=== PATIENT | female | born 1940 | race Caucasian/White ===

== ENCOUNTER → 2018-10-08 16:24 | Outpatient (CLI) | payer MEDICARE, MEDICAID, SELFPAY ==
[2018-10-08 16:40] LABS: Microscopic, Urine URINE MICROSCOPIC (MICROSCOPIC)
[2018-10-08 16:54] LABS: Appearance,Urine CLEAR (Clear); Bilirubin,Urine Negative (Negative); Blood, Urine Negative (Negative); Color,Urine YELLOW (Yellow); Glucose,Urine (UA) Negative (Negative); Ketones,Urine Negative (Negative); Leukocyte Esterase,Urine Negative (Negative); Nitrate,Urine Negative (Negative); Protein,Urine 1+ (Negative); Specific Gravity, Urine 1.015 (1.005-1.030); Urobilinogen,Urine 0.2 EU/dl (0.2)
[2018-10-08 17:11] LABS: Squamous Epithelial Cell,Urine Occasional #/hpf (0-5)
[2018-10-08 17:12] LABS: Bacteria,Urine Trace /lpf
== END ==
PROVIDERS: Visit Provider Nurse Practitioner Family
DX: R50.9 Fever, unspecified (principal); R53.81 Other malaise
CPT/HCPCS: 81001; 87086

== ENCOUNTER 2020-02-09 23:09 | Inpatient (IN) | payer MEDICARE, MEDICAID, SELFPAY ==
[2020-02-09 23:08] VITALS: BP 210/95; PULSE 80; RESP 14; TEMP 37; O2SAT 94; BMI 29.8; BMI 319.9
--- NOTE | 2020-02-09 23:09 | CT_ITS ---
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 All CT scans at the facility use one or more dose reduction, viz: automated exposure control, ma/kV adjustment per patient size (including targeted exams where dose is matched to indication, i.e. head), or iterative reconstruction technique. FINDINGS: The patient was unable to lie flat supine and had to be scanned on her side. There is generalized atrophy with hypoattenuation of the periventricular white matter consistent with microangiopathic changes. No midline shift or mass effect. No acute intracranial hemorrhage or hydrocephalus. No acute calvarial findings. IMPRESSION: No acute intracranial finding Dictated by: Joesph Branch MD 02/10/2020 05:37 Joesph Branch MD in [place] 02/10/2020 05:37
--- NOTE | 2020-02-09 23:10 | PC.NURSE ---
2305 FSBS obtained by Jaime Clark
--- NOTE | 2020-02-09 23:10 | PC.NURSE ---
2307 pt sent straight up to CT scanner via EMS , [facility]. Stroke Alert protocol
--- NOTE | 2020-02-09 23:12 | XR_ITS ---
PROCEDURE: XR CHEST PORTABLE CLINICAL HISTORY: weakness COMPARISON: CR CXR CHEST(2 VIEWS-NOT PORTABLE) from 11/23/2014 CR CXR1 CHEST-PORTABLE from 12/08/2016 CT CTAC CTA-CHEST from 12/08/2016 CR CXR1 CHEST-PORTABLE from 04/25/2017 FINDINGS: The cardiomediastinal silhouette and pulmonary vascularity are within normal limits. There is chronic consolidation in the right lower lobe with pleural thickening/effusion. There is also increased density in the left lung base which may be due to atelectasis or infiltrate. Upper lobes are clear. Postsurgical changes lumbar spine. No acute bony abnormalities. IMPRESSION: Chronic consolidation with effusion or pleural thickening in the right lower lobe with atelectasis or infiltrate in the left lower lobe Dictated by: Joesph Branch MD 02/10/2020 05:22 Joesph Branch MD in [facility] 02/10/2020 05:22
[2020-02-09 23:20] LABS: Basophils % 0.2 % (0.1-2.0); Eosinophils # 0.2 K/mm3 (0.0-0.4); Hematocrit 42.5 % (37.0-47.0); Hemoglobin 14.3 g/dL (12.2-16.2); Lymphocytes # 0.9 K/mm3 (0.7-4.5); Lymphocytes % 9.8 % (10-50); Mean Corpuscular HGB Conc 33.7 g/dL (31.8-35.4); Mean Corpuscular Hemoglobin 30.2 pg (27.0-31.2); Mean Corpuscular Volume 89.5 fl (81-99); Mean Platelet Volume 7.8 fl (7.4-10.4); Monocytes # 0.5 K/mm3 (0.1-1.0); Monocytes % 5.2 % (1.7-9.3); Neutrophils # 7.7 K/mm3 (1.8-7.8); Neutrophils % 82.8 % (37.0-80.0); Platelet Count 205 K/mm3 (142-424); Red Blood Count 4.75 M/mm3 (4.20-5.40); White Blood Count 9.3 K/mm3 (4.8-10.8)
[2020-02-09 23:23] LABS: Chloride 95 mmol/L (98-107)
[2020-02-09 23:24] LABS: Sodium 140 mmol/L (136-145)
[2020-02-09 23:26] LABS: Alanine Aminotransferase 25 U/L (12-78); Alkaline Phosphatase 139 U/L (38-126); Aspartate Amino Transferase 33 U/L (14-36); Bilirubin,Total 0.4 mg/dl (0.2-1.3); Blood Urea Nitrogen 18 mg/dl (7-17); Creatinine Clearance Estimated 61 mL/min (50-200); Estimated Glomerular Filt Rate 61 ml/min (>60); GFR (African American) 73 ML/MIN (>60)
[2020-02-09 23:27] LABS: Calcium 9.2 mg/dl (8.4-10.2); Carbon Dioxide 37 mmol/L (22.0-30.0); Glucose 169 mg/dl (74-100)
[2020-02-09 23:28] LABS: Ethyl Alcohol < 10 mg/dl (0-10)
--- NOTE | 2020-02-09 23:29 | HMH.EDGENADL ---
ED Disposition Clinical Impression: Expressive aphasia, Uncontrolled hypertension Disposition: Admitted as Observation Condition on Discharge: Fair - Critical Care Critical Care Time: Yes Attestation: On 02/09/20, the high probability of a clinically significant, sudden or life threatening deterioration of the following system(s) required my full and direct attention, intervention and personal management. The time I documented below is in addition to time spent performing reported procedures but includes the following listed in this critical care notation. Total Critical Care Time: 30 Vital system(s) involved:: Circulatory Failure, Central Nervous System My critical care processes included: Assessment & monitoring of V/S, Initial and Re-exams, Data Review/Interpretation, Coordinating Care, Medication Orders and management, Documentation Medical Decision Making - Medical Records Medical records reviewed: Yes: I reviewed the patient's medical records. MR Comment: Admitted here on 12/08/2016 for what sounds like the same symptoms. stroke team consulted and transfer to was recommended, but patient refused. Diagnosed with TIA. - Eric Inquiry Pt receiving controlled substance: No Vital Signs: 02/09/20 23:08 02/10/20 00:07 02/10/20 00:24 Temperature 98.6 F Temperature Source Oral Pulse Rate Pulse Rate [Right Radial] 80 74 Respiratory Rate 14 15 Blood Pressure Blood Pressure [Right Arm] 210/95 H 156/82 H Blood Pressure Mean [Right Arm] 133 106 Blood Pressure Source Blood Pressure Source [Right Arm] Automatic Cuff Automatic Cuff Blood Pressure Position Blood Pressure Position [Right Arm] Supine Sitting 02 Sat by Pulse Oximetry 94 L 96 Oxygen Delivery Method Nasal Cannula Room Air Nasal Cannula Oxygen Flow Rate (LPM) 2 02/10/20 00:30 02/10/20 01:12 Temperature 98.6 F Temperature Source Oral Pulse Rate 82 Pulse Rate [Right Radial] 73 Respiratory Rate 18 19 Blood Pressure 185/81 H Blood Pressure [Right Arm] 166/91 H Blood Pressure Mean [Right Arm] 116 Blood Pressure Source Automatic Cuff Blood Pressure Source [Right Arm] Automatic Cuff Blood Pressure Position Supine Blood Pressure Position [Right Arm] Supine 02 Sat by Pulse Oximetry 97 Oxygen Delivery Method Nasal Cannula Nasal Cannula Oxygen Flow Rate (LPM) 2 2 - Lab Data Lab results reviewed: Yes: I reviewed the patient's lab results. Lab Results 02/09/20 00:00: SARS-CoV-2 IgG Ab (Rapid) Negative, SARS-CoV-2 IgM Ab (Rapid) Negative 02/09/20 23:10: WBC 9.3, RBC 4.75, Hgb 14.3, Hct 42.5, MCV 89.5, MCH 30.2, MCHC 33.7, RDW 13.0, Plt Count 205, MPV 7.8, Neut % (Auto) 82.8 H, Lymph % (Auto) 9.8 L, [place] % (Auto) 5.2, Eos % (Auto) 2.0, Baso % (Auto) 0.2, Neut # (Auto) 7.7, Lymph # (Auto) 0.9, [place] # (Auto) 0.5, Eos # (Auto) 0.2, Baso # (Auto) 0.0 02/09/20 23:10: Sodium 140, Potassium 4.0, Chloride 95 L, Carbon Dioxide 37 H, Anion Gap 12.0, BUN 18 H, Creatinine 0.90, Estimated Creat Clear 61, Estimated GFR 61, Est GFR ( Amer) 73, Glucose 169 H, Calcium 9.2, Total Bilirubin 0.4, AST 33, ALT 25, Alkaline Phosphatase 139 H, Troponin I < 0.01, Total Protein 8.0, Albumin 4.0, Globulin 4.0 H, Albumin/Globulin Ratio 1.0 L 02/09/20 23:10: Plasma/Serum Alcohol < 10 02/09/20 23:25: PT 10.4, INR 1.01 02/09/20 23:30: Urine Color Yellow, Urine Appearance Clear, Urine pH 8.0, Ur Specific [place] 1.020, Urine Protein 1+, Urine Glucose (UA) Negative, Urine Ketones Negative, Urine Blood Trace-i, Urine Nitrate Negative, Urine Bilirubin Negative, Urine Urobilinogen 0.2, Ur Leukocyte Esterase Negative, Urine Bacteria Trace 02/09/20 23:30: Urine Opiates Screen Negative, Urine Methadone Screen Negative, Ur Barbituates Screen Negative, Ur Phencyclidine Scrn Negative, Ur Amphetamines Screen Negative, U Benzodiazepines Scrn Positive H, Urine Cocaine Screen Negative, U Marijuana (THC) Screen Negative Result diagrams: 02/09/20 23:10 02/09/20 23:
--- NOTE | 2020-02-09 23:32 | PC.NURSE ---
calling [place] stroke team at this time.
[2020-02-09 23:34] LABS: Microscopic, Urine URINE MICROSCOPIC (MICROSCOPIC)
--- NOTE | 2020-02-09 23:35 | PC.NURSE ---
at bedside at 2317 assessing pt
--- NOTE | 2020-02-09 23:38 | PC.NURSE ---
on phone with dr. starkey at this time.
[2020-02-09 23:40] LABS: Appearance,Urine CLEAR (Clear); Bilirubin,Urine Negative (Negative); Blood, Urine TRACE-I (Negative); Color,Urine YELLOW (Yellow); Glucose,Urine (UA) Negative (Negative); Ketones,Urine Negative (Negative); Leukocyte Esterase,Urine Negative (Negative); Nitrate,Urine Negative (Negative); Protein,Urine 1+ (Negative); Urobilinogen,Urine 0.2 EU/dl (0.2)
--- NOTE | 2020-02-09 23:40 | PC.NURSE ---
last seen normal per ems was at 1830 reji 02/09/2020
[2020-02-09 23:42] LABS: INR 1.01 (0.9-1.1); Prothrombin Time 10.4 seconds (9.4-11.8)
--- NOTE | 2020-02-09 23:45 | PC.NURSE ---
[place] advised to monitor pt overnight
[2020-02-09 23:46] LABS: Troponin I < 0.01 ng/ml (0.00-0.034)
--- NOTE | 2020-02-09 23:48 | ECG_ITS ---
APPROVED REPORT Exam: Resting ECG HR:74 bpm ECG Measurements Heart Rate 74 AXES OH 178 P 76 QRSd 86 QRS -56 QT 402 T 70 QTc 446 <Conclusion> Normal sinus rhythm Left axis deviation Septal infarct, age undetermined Abnormal ECG Electronically signed by : John Long, 02/12/2020 15:01:54
[2020-02-09 23:53] LABS: Benzodiazepines Screen,Urine Positive ng/ml (<200)
[2020-02-09 23:54] LABS: Amphetamine/Metha Screen,Urine Negative ng/ml (<1000); Barbiturates Screen,Urine Negative ng/ml (<200)
--- NOTE | 2020-02-09 23:54 | PC.NURSE ---
on phone with dr. knight which is web content executive for dr. russell
[2020-02-09 23:55] LABS: Cannabinoid Screen,Urine Negative ng/ml (<50); Methadone Screen,Urine Negative ng/ml (<300)
[2020-02-09 23:56] LABS: Cocaine Screen,Urine Negative ng/ml (<300)
[2020-02-09 23:57] LABS: Opiate Screen,Urine Negative ng/ml (<300)
[2020-02-09 23:58] LABS: Bacteria,Urine Trace /lpf; Phencyclidine Screen,Urine Negative ng/ml (<25)
[2020-02-10] VITALS (13 sets, daily range): BP systolic 144–186; BP diastolic 72–100; PULSE 72–88; RESP 15–22; TEMP 36.7–38.2; O2SAT 93–98; BMI 34.4; BMI 34.9
[2020-02-10 00:35] LABS: Coronavirus 19 IgG Antibody Negative (Negative); Coronavirus 19 IgM Antibody Negative (Negative)
--- NOTE | 2020-02-10 00:57 | PC.NURSE ---
0053- Report called to [facility]
--- NOTE | 2020-02-10 01:16 | PC.NURSE ---
PT ARRIVED TO THE FLOOR VIA STRETCHER W/STAFF FROM ED AT 0116
[2020-02-10 05:28] LABS: POC Glucose,Bedside 147 (70-110)
--- NOTE | 2020-02-10 05:52 | PC.NURSE ---
shift summary, NIH stroke assessments done every hour, no changes from admission to floor, pt continues to be aphasic, obando catheter in place, draining clear, yellow urine, son remains at bedside, systolic BP has been from 158-171, with diastolic from 73-100, pt denies chest pain, headache, SOA, n/v, diaphoresis
--- NOTE | 2020-02-10 07:27 | HMH.PHAVTE ---
[facility] Pharmacy VTE Monitoring - Patient Demographics Admission date: 02/09/20 Report Date: 02/10/20 Time: 07:27 Allergies/Adverse Reactions: Patient Allergies Penicillins [PENICILLINS] Allergy (Intermediate, Verified 02/10/20 01:54) prednisone [PREDNISONE] Allergy (Mild, Verified 02/10/20 01:54) Gastrointestinal Upset Sulfa (Sulfonamide Antibiotics) [SULFA (SULFONAMIDE ANTIBIOTICS)] Allergy (Unknown, Verified 02/10/20 01:54) NARCOTICS Allergy (Intermediate, Uncoded 02/10/20 01:54) Drowsy Height: 1.57 m Weight: 85.502 kg Patient Problems: Current Active Problems Expressive aphasia (Acute) Uncontrolled hypertension (Acute) - VTE Risk Labs: VTE Related Lab Results Hgb 14.3 g/dL (12.2-16.2) 02/09/20 23:10 Hct 42.5 % (37.0-47.0) 02/09/20 23:10 Plt Count 205 K/mm3 (142-424) 02/09/20 23:10 PT 10.4 seconds (9.4-11.8) 02/09/20 23:25 INR 1.01 (0.9-1.1) 02/09/20 23:25 BUN 18 mg/dl (7-17) H 02/09/20 23:10 Creatinine 0.90 mg/dl (0.52-1.04) 02/09/20 23:10 Estimated Creat Clear 61 mL/min (50-200) 02/09/20 23:10 - Prophylaxis VTE Prophylaxis Ordered?: Yes Types of VTE Prophylaxis: TEDS Knee High Location of Applied Device: Bilateral Lower Extremeties
--- NOTE | 2020-02-10 07:28 | HMH.HP ---
*Admission Date: 02/09/20 *Chief complaint: Hypertension and word finding difficulty *History of present illness: Ms. Gonzalez is a 79-year-old female brought in by EMS last night after being found by her son to developed difficulty with word finding and having elevated blood pressure. Per report from her son, she has had previous episodes (2 per her recollection) they were associated with a UTI and elevated blood pressure. Had previously been on aspirin and Plavix until developing hemoptysis a year ago and is been off antiplatelet/blood thinner therapy since then. On arrival to the ER, she was found to have severe hypertension. Treated initially with labetalol with adequate decrease in blood pressure. Stroke team at was consulted and recommended starting dual antiplatelet therapy and admitting for observation. Medicine consulted for admission and blood pressure management. On assessment this morning, patient answers yes/no questions appropriately but when asked more complex questions, her answers are garbled and make no sense. When asked to place her finger to her nose she consistently put her finger in her mouth. Pleasant on interview. Blood pressure better controlled overnight with systolics 160-180. Son at bedside this morning. Updated on plan. Of note, she has developed fever overnight with T-max 100.8. [facility] History I have reviewed the patient's past medical history: Yes (From son and charts) Medical History: Reports:: Hyperlipidemia, Hypertension Denies:: Cancer, Diabetes Mellitus Type 1, Diabetes Mellitus Type 2, Internal Pacemaker, MRSA *Have you ever received a pneumonia vaccine?: No *Have you received a flu vaccine this season?: No Other Surgeries: Yes: Cholecystectomy. No: Pacemaker Amputation: No Fractures: Yes (Back) - *Social History Last grade of school completed: 7th or 8th Smoking Status: Former smoker Tobacco Type: cigarettes # Packs/Day (cigarettes): 1 Smoking End Date: 2013 Alcohol Intake: never *Occupational Status:: unemployed Housing: house Household Members: children *Travel in the last 8 weeks: None Family Hx:: Unable to obtain Review of Systems - Review of Systems Review of systems:: pertinent systems reviewed and negative unless documented below (14 point review of systems performed, pertinent positives and negatives as per HPI) Meds Home Medications Medication Instructions Recorded Confirmed Type Fluticasone/Vilanterol [Breo 1 inh IH HS 02/09/20 02/10/20 History Ellipta 200-25 Mcg INH] Losartan/Hydrochlorothiazide 1 each PO DAILY 02/09/20 02/10/20 History [Losartan-Hctz 50-12.5 mg Tab] Sitagliptin Phosphate [Januvia 100 mg PO DAILY 02/09/20 02/10/20 History 100mg tablet] Chlordiazepoxide/Clidinium Br 1 each PO DAILY 02/10/20 02/10/20 History [Librax Capsule] Donepezil HCl [Aricept 5mg 5 mg PO HS 02/10/20 02/10/20 History Tablet] Ipratropium/Albuterol Sulfate 3 ml IH BID 02/10/20 02/10/20 History [Duoneb 3mL neb] Metoprolol Tartrate [Lopressor 100 mg PO BID 02/10/20 02/10/20 History 50mg tablet] Potassium Chloride [Klor-con 20 20 meq PO BID 02/10/20 02/10/20 History mEq tablet] Simvastatin [Zocor 40mg] 40 mg PO HS 02/10/20 02/10/20 History Allergies Allergy/AdvReac Type Severity Reaction Status Date / Time Penicillins [PENICILLINS] Allergy Intermediate Verified 02/10/20 01:54 prednisone [PREDNISONE] Allergy Mild Gastrointestinal Verified 02/10/20 01:54 Upset Sulfa (Sulfonamide Allergy Unknown Verified 02/10/20 01:54 Antibiotics) [SULFA (SULFONAMIDE ANTIBIOTICS)] NARCOTICS Allergy Intermediate Drowsy Uncoded 02/10/20 01:54 Exam Vital signs and Labs for Last 24 Hours: Temp Pulse Resp BP Pulse Ox 98.7 F 85 20 186/79 H 96 02/10/20 06:21 02/10/20 06:21 02/10/20 06:21 02/10/20 06:21 02/10/20 06:21 Laboratory Results - last 24 hr 02/09/20 00:00: SARS-CoV-2 IgG Ab (Rapid) Negative, SARS-C
--- NOTE | 2020-02-10 07:30 | PC.NURSE ---
md liu said to give patients home medication of losartan-admin per order. pharmacist héctor aware he put in a one time dose order. orders to hold am medications hydroclorothiazide, and irbesartan d/t having losartan this am. son at bedside and aware of medication changes. spoke with son regarding all medications he says at home she takes k 20 meq bid and lopressor 50mg bid- dr liu aware and doesnt want to continue with those at this time.
--- NOTE | 2020-02-10 08:10 | HMH.PHAINT ---
HOME MEDICATION RECONCILIATION COMPLETED USING LIST FROM [facility]
--- NOTE | 2020-02-10 10:32 | PC.NURSE ---
patient to have mri brain/ head stat. pharmacist technician came to speak with patients son at bedside performed checklist. patient left floor on stretcher accompanied with pharmacist technician x 2 at 1015.
--- NOTE | 2020-02-10 11:01 | PC.NURSE ---
patient returned to floor from mri. machines technician said they were unsuccessful with obtaining the mri patient was unable to lie flat, was screaming no, uncooperative. md liu office called left message with his nurse explaining what happened regarding mri. son at bedside and aware as well. speech therapist currently at bedside now performing swallow evaluation.
--- NOTE | 2020-02-10 13:21 | PC.NURSE ---
md liu called back aware of patient not being able to do mri. patients son was inquiring about resuming patients mucinex, and duonebs. md liu gave orders to resume.
--- NOTE | 2020-02-10 13:22 | HMH.SLDYSPHA ---
Speech & Language Evaluation Speech/Language Dysphagia Evaluation Start: 02/10/20 13:07 Freq: ONCE Status: Active Protocol: Document 02/10/20 13:07 AMARILIS (Rec: 02/10/20 13:22 AMARILIS [id number]) Dysphagia Assess/Goals/Plan Assessment Date of Evaluation: 02/10/20 Evaluation Type Initial Certification Assessment/Problems CVA Does Patient Qualify for Service No Qualify/Failure Comment Patient shows no s/s of dysphagia Recommendations PHYSICIAN CERTIFICATION: The specified therapy services are required, authorized, and reviewed every 30 days. Diet Recommendations Mechanical Soft Liquid Type Recommendations Normal/Thin Dysphagia Swallow Precautions/Strategies Liquids from Straw Plan Pt/Guardian verbally ack understanding Yes: RN and son notified of dx/prognosis/goals G -code Required No Speech & Language HPI History Present Illness Rehab Services Assessed Speech therapy Is this evaluation r/t stroke? Yes Language Primary Language Korean General Information General Current Food Consistancy Regular,Thin Liquids Dentition Upper & Lower Dentures Oxygen Status Nasal Cannula Facial Symmetry Symmetrical Ability to Follow Directions Poor Communication Ability Severe Impairment Dysphagia:Food Presentation Evaluation Food Type Mechanical Soft,Liquid,Pudding Dysphagia Evaluation Summary Ms. Gonzalez was given the following consistencies: thins via straw, pudding, and mechanical soft. Ms. Gonzalez did not have her lower dentures available during evaluation. No s/s of dysphagia noted during evaluation, however she has difficulty following basic 1 step directions. At this time, speech therapy for dysphagia not warranted. Stroke Dysphagia Assessment PHYSICIAN CERTIFICATION: I certify the specified therapy services for Alanna Gonzalez are required, authorized, and reviewed every 30 days.
--- NOTE | 2020-02-10 14:21 | PC.NURSE ---
late entry:[address] liu that pt bp was 156/79. mri was not completed bc pt could not tolerate being flat on her back. pt also asking for her mucinex and duonebs to be reordered. per ok to order duoneb and mucinex.
[2020-02-10 15:38] LABS: POC Glucose,Bedside 152 (70-110)
--- NOTE | 2020-02-10 18:02 | PC.NURSE ---
patient son remains at bedside. patient did not want to eat dinner, attempted multiple times. patient becoming more alert as the day goes on. patient answering simple yes/no questions appropriately, knows name, does not know where she is at thinks she is at home. patient nih scale 4. safety measures are in place, patient resting. no issues at this time.
[2020-02-10 18:59] LABS: POC Glucose,Bedside 212 (70-110)
--- NOTE | 2020-02-10 19:07 | PC.NURSE ---
report given to chantel
[2020-02-11] VITALS (9 sets, daily range): BP systolic 142–150; BP diastolic 60–76; PULSE 89–118; RESP 17–27; TEMP 36.9–38.8; O2SAT 91–98; BMI 34.0
[2020-02-11 00:31] LABS: POC Glucose,Bedside 122 (70-110)
--- NOTE | 2020-02-11 01:17 | PC.NURSE ---
Pt's son requested that his mother rest and for this nurse not to perform the NIH Stroke Assessment for 0100.
--- NOTE | 2020-02-11 04:49 | PC.NURSE ---
Pt has slept most of this shift. NIH Stroke assessments continue to be performed qh, other than when son refused as stated in previous note. NIH scores have remained at 4 this shift. Pt is able to state name, and will respond to yes or no questions. Any open-ended questions, pt tries to speak but pt cannot find the words and speaks in a garbled way. Upon reassessment, lungs continue to have scattered inspiratory and expiratory rhonchi t/o. Pt has a nonproductive cough. Bilateral shins continue to be red and warm to touch. BP has decreased with 0400 vital assessment stating BP was 142/60. Pt has been turned q2h. Pt's son remains at bedside. No other acute changes at this time. Will continue to monitor.
[2020-02-11 06:49] LABS: Basophils % 0.1 % (0.1-2.0); Eosinophils % 0.2 % (0.1-12.0); Hematocrit 40.2 % (37.0-47.0); Hemoglobin 13.6 g/dL (12.2-16.2); Lymphocytes # 1.2 K/mm3 (0.7-4.5); Lymphocytes % 8.9 % (10-50); Mean Corpuscular HGB Conc 33.9 g/dL (31.8-35.4); Mean Corpuscular Hemoglobin 29.7 pg (27.0-31.2); Mean Corpuscular Volume 87.8 fl (81-99); Mean Platelet Volume 7.9 fl (7.4-10.4); Monocytes # 0.8 K/mm3 (0.1-1.0); Monocytes % 6.2 % (1.7-9.3); Neutrophils % 84.6 % (37.0-80.0); Platelet Count 193 K/mm3 (142-424); Red Blood Count 4.58 M/mm3 (4.20-5.40); Red Cell Distribution Width 12.9 % (11.5-17.5)
[2020-02-11 06:53] LABS: Chloride 88 mmol/L (98-107); Potassium 3.2 mmoL/L (3.5-5.1); Sodium 130 mmol/L (136-145)
[2020-02-11 06:56] LABS: Alanine Aminotransferase 21 U/L (12-78); Albumin Level 3.5 g/dl (3.5-5.0); Alkaline Phosphatase 112 U/L (38-126); Anion Gap 11.2 mEq/L (5-15); Aspartate Amino Transferase 32 U/L (14-36); Bilirubin,Total 0.8 mg/dl (0.2-1.3); Blood Urea Nitrogen 18 mg/dl (7-17); Calcium 8.3 mg/dl (8.4-10.2); Carbon Dioxide 34 mmol/L (22.0-30.0); Creatinine Clearance Estimated 61 mL/min (50-200); Estimated Glomerular Filt Rate 61 ml/min (>60); GFR (African American) 73 ML/MIN (>60); Globulin 3.5 g/dL (1.3-3.2); Glucose 169 mg/dl (74-100)
[2020-02-11 07:00] LABS: Magnesium 0.9 mg/dl (1.6-2.3)
--- NOTE | 2020-02-11 07:16 | PC.NURSE ---
MD James paged, environmental compliance engineer for MD Long for critical mag of 0.9. 1 gm of mag ordered
--- NOTE | 2020-02-11 09:39 | HMH.ACPN2 ---
Internal Medicine - PN: Subj *Date: 02/11/20 *Time: 09:39 Interval history: Overnight patient has been comfortable, no improvement in her expressive aphasia, continues to follow commands well, has no problems eating or swallowing. Exam Vital signs and Labs for Last 24 Hours: Temp Pulse Resp BP Pulse Ox 99.6 F 102 H 17 149/66 H 95 02/11/20 08:00 02/11/20 08:00 02/11/20 08:00 02/11/20 08:00 02/11/20 08:00 Laboratory Results - last 24 hr 02/10/20 10:54: POC Glucose 212 H 02/10/20 15:29: POC Glucose 152 H 02/10/20 21:52: POC Glucose 122 H 02/11/20 06:19: WBC 13.0 H D, RBC 4.58, Hgb 13.6, Hct 40.2, MCV 87.8, MCH 29.7, MCHC 33.9, RDW 12.9, Plt Count 193, MPV 7.9, Neut % (Auto) 84.6 H, Lymph % (Auto) 8.9 L, [place] % (Auto) 6.2, Eos % (Auto) 0.2, Baso % (Auto) 0.1, Neut # (Auto) 11.0 H, Lymph # (Auto) 1.2, [place] # (Auto) 0.8, Eos # (Auto) 0.0, Baso # (Auto) 0.0 02/11/20 06:19: Sodium 130 L, Potassium 3.2 L, Chloride 88 L, Carbon Dioxide 34 H, Anion Gap 11.2, BUN 18 H, Creatinine 0.90, Estimated Creat Clear 61, Estimated GFR 61, Est GFR ( Amer) 73, Glucose 169 H, Calcium 8.3 L, Magnesium 0.9 L, Total Bilirubin 0.8, AST 32, ALT 21, Alkaline Phosphatase 112, Total Protein 7.0, Albumin 3.5 D, Globulin 3.5 H, Albumin/Globulin Ratio 1.0 L I & O for Last 24 hours: Intake & Output 02/08/20 02/09/20 02/10/20 02/11/20 11:59 11:59 11:59 11:59 Intake Total 120 / 120 750 / 750 Output Total 0 / 2210 Balance -2089 / -2089 750 / 750 Weight 189 lb 9.561 oz 185 lb 1 oz Narrative: Pleasant, responds to commands, able to answer with one-word, usually yes -and becomes very frustrated about her lack of ability to communicate. Cranial nerves are intact, oropharynx clear. Able to move extremities well except for her right upper extremity which has always been her bad 1 according to her son. Heart rate regular. No bruit. Lungs clear. Abdomen soft. No skin rash. Assessment and Plan (1) Hypertensive emergency Current visit: Yes Status: Acute Category: Medical Code(s): I16.1 - Hypertensive emergency (2) Stroke Current visit: Yes Status: Acute Category: Medical Code(s): I63.9 - Cerebral infarction, unspecified (3) Expressive aphasia Current visit: Yes Status: Acute Category: Medical Code(s): R47.01 - Aphasia (4) Fever Current visit: Yes Status: Acute Category: Medical Code(s): R50.9 - Fever, unspecified - Assessment and plan all Dx Assessment and Plan for all problems:: Hypertension has been adequately controlled at this point. No change in blood pressure medications today. Over the next couple of days we may increase doses to try to get her systolic pressure under 140. Or no worsening neurologic deficits. Patient is really not able to tolerate MRI and we will repeat a CT scan today with contrast to see if any CVA damage has revealed itself.
--- NOTE | 2020-02-11 10:33 | CT_ITS ---
PROCEDURE: CT HEAD/BRAIN WO/W CON Referring Doctor: John Long Patient Age:79Y CLINICAL INDICATION: follow up cva. Weakness. Confusion. Abnormal speech. Altered mental status COMPARISON: CT HDWO CT HEAD W/O CONTR from 12/08/[address] HEAD W/O CONTRAST from 04/25/[address] HEAD/BRAIN WO CON from 02/09/2020 TECHNIQUE: Pre and postcontrast imaging performed today today. IV Contrast: 100ML OPITRAY 320 Patient could not lay flat and would not cooperate Axial images were obtained pre and postcontrast the. All CT scans at the facility use one or more dose reduction, viz: automated exposure control, ma/kV adjustment per patient size (including targeted exams where dose is matched to indication, i.e. head), or iterative reconstruction technique. FINDINGS: The patient was uncooperative and had difficulty in lying flat and would not cooperate thus today's study is somewhat limited as the very anterior margin of the frontal lobe of was partially cut off-but this area was included and unremarkable on the a study from 2 days ago on February 08 However today's images reveal no acute intracranial findings.. No appreciable change compared to 02/09/2020. No intracranial hemorrhage.. No territorial infarct. No significant abnormal areas of enhancement.. On this standard postcontrast CT there is actually good enhancement noted at both middle cerebral arteries as well as good enhancement of vertebral basilar vessels No hydrocephalus.The ventricles and basal cisterns appear clear and satisfactory. No mass or midline shift nor mass effect. No subdural or extra-axial fluid collection is evident. Patchy low-density throughout deep white matter reflects abundant chronic small vessel ischemic gliotic changes similar to prior studies. The posterior fossa unremarkable. On the frontal bone is not fully imaged but the visualized portions the skull otherwise unremarkable and stable. The visualized portions of paranasal sinuses appear clear. Mastoid air cells are well developed and clear. Middle ear and IAC's unremarkable. . IMPRESSION: .No acute intracranial findings.. No new findings .Today's post-contrast CT head reveals no abnormal areas of enhancement Note: Patient was uncooperative and could not position appropriately. Best ct images possible were obtained today, but study is slightly limited as it does not include the very anterior margin of frontal lobes on a few of the images. However this area was included and unremarkable study from 2 days ago (CT head without from 02/09/2020) . Diffuse chronic small vessel , white-matter ischemic gliotic changes again noted.; but no territorial infarct evident by CT Dictated by: Luiz Chrales MD 02/11/2020 12:00 Luiz Charles MD in [place] 02/11/2020 12:00
--- NOTE | 2020-02-11 11:28 | PC.NURSE ---
Attempted to call PT for eval on this pt. No answer, left message.
[2020-02-11 11:41] LABS: POC Glucose,Bedside 156 (70-110)
--- NOTE | 2020-02-11 16:42 | PC.NURSE ---
PT'S SON NOTIFIED STAFF THAT PT NEEDED TO HAVE A BM. WHEN STAFF CAME TO ASSIST AND RECOMMENDED A BSC OR BEDPAN, SON INSISTED TO WALK THE PT TO THE BATHROOM. FALL PREVENTION EDUCATION PROVIDED TO FAMILY AND EXPLAINED THE RISKS OF THE PATIENT WALKING TO THE BATHROOM AND PHYSICAL LIMITATIONS. PHYSICAL THERAPY WAS SCHEDULED TO ARRIVE FOR EVALUATION IN THE NEAR FUTURE AND THIS JEWEL DIAMETER GAUGER SUGGESTED TO SON THAT WE WILL ATTEMPT TO AMBULATE TO THE BATHROOM DURING/AFTER THE RESULTS OF THE EVALUATION. SON BECAME AGITATED AND DEMANDED FOR PT TO BE TAKEN TO BATHROOM. X3 MAX ASSIST UTILIZED TO GET PT OOB, SEVERAL MINUTES TO SHUFFLE DETENTION TO THE BATHROOM, PT LOST BALANCE AND WAS TRANSFERRED TO BSC. WHILE ON BSC, IT WAS NOTICED THAT RIGHT ARM WAS COMPLETELY FLACCID WITH NO EFFORT AGAINST GRAVITY AND WAS NOT ABLE TO MOVE OR FEEL RIGHT LEG. PT HAD SOME EFFORT AGAINST GRAVITY AT THE 1100 NIH STROKE ASSESSMENT. NO OTHER CHANGES IN PTS STROKE ASSESSMENT. PT WAS ASSISTED BACK TO BED, NO BM NOTED. BEATER ENGINEER PHYSICIAN, DR. ENGLAND WAS NOTIFIED BY PHONE AT 1530. PRIMARY, DR CERDA NOTIFIED AND UPDATED, NO NEW ORDERS. VSS, BP 150/76. DURING THIS TIME, PT'S SON WAS PACING UP AND DOWN HALLWAY, SHOUTING AND ARGUING WITH STAFF. DURING PT EVALUATION, PT UNABLE TO GET OOB OR AMBULATE. WILL CONTINUE TO MONITOR
--- NOTE | 2020-02-11 17:06 | HMH.PTEV ---
Physical Therapy Evaluation Rehab PT IP Evaluation Start: 02/11/20 09:41 Freq: ONCE Status: Active Protocol: Document 02/11/20 16:51 INOCENCIA (Rec: 02/11/20 17:06 INOCENCIA [id number]) Subjective/History History History Patient was admitted to [facility] 03/20 to ER by ambulance. Patient began to experience RUE/RLE weakness and loss of speech. Her son reports that she was previously independent at home and ambulates with SPC. She was able to walk to the ambulance 02/09/20p. She was admitted for hypertensive emergency and expressive aphasia. Prior to PT evaluation she had been seen for a ST evaluation. During PT evaluation she was non- communicative and a complete total dependent for transfer to EOB which was not obtained. Nursing added that approx 1 hour before she was a total dependent transfer x 4 to get to the bathroom which was not obtained. Nursing reported that she had to be scooted back to EOB via bedside commode and total dependent to obtain supine position. Prior to PT attempting achieve EOB BP was 158/90 Subjective Subjective None Rehab PT IP Eval Objective Appearance Patient Behavior Fatigued,Confused Difficulty following instructions severe Speech Pattern Aphasic Ambulation Patient Able to Ambulate No Transfers Bed Transfer Ability Total/Dependent (100%) Chair Transfer Ability Total/Dependent (100%) Sit to Stand Bed Transfer Ability Total/Dependent (100%) Sit to Stand Chair Transfer Ability Total/Dependent (100%) ROM LLE PT ROM Status WFL RLE PT ROM Status ABN MMT LLE PT MMT ABN RLE PT MMT ABN Rehab PT IP prob,goals,plan Problems Date of Evaluation: 02/11/20 PT IP Problems Bed Mobility,Transfers,Gait, Balance,Self care,Safety Rehab Potential Rehab Potential Poor Equipment Needs Assistive Devices
[2020-02-11 17:15] LABS: POC Glucose,Bedside 149 (70-110)
[2020-02-11 17:15] LABS: POC Glucose,Bedside 129 (70-110)
[2020-02-11 21:15] LABS: POC Glucose,Bedside 164 (70-110)
--- NOTE | 2020-02-11 21:30 | XR_ITS ---
PROCEDURE: XR CHEST PORTABLE Referring Doctor: Colton James Patient Age:79Y CLINICAL HISTORY: SOA . Expressive aphasia . No problems eating or swallowing described COMPARISON: CR CXR1 CHEST-PORTABLE from 12/08/2016 CT CTAC CTA-CHEST from 12/08/2016 CR CXR1 CHEST-PORTABLE from 04/25/2017 CR XR CHEST PORTABLE from 02/09/2020 FINDINGS: AP portable upright chest performed and compared to multiple chest films most recent from 02/09/2020. The patient is longstanding right pleural effusion and chronic consolidation at the right lower lobe which is seen dating back to P CXR and CT from November 2016. However when compared to the recent CXR 02/09/2020 there has been progression of densities at the right base particularly the medial right lung base but there seems to be some progressive pleural effusion but I believe there is also some additional atelectasis and airspace disease. Specifically I would note that the heart and mediastinum appears slightly shifted to the right of which would suggest element of atelectasis rather than increasing pleural effusion but There is slight increased hazy appearance throughout the right base suggesting this progressing airspace disease in addition to the pleural changes may be slightly more rotated which in part may shift the mediastinum slightly to the right as well . Right bronchus it is not as well delineated on today's study . Chest wall unremarkable. IMPRESSION ====== Progressive density at lower right chest and right lung base, compared to most recent Jan 10 P CXR Suspect this reflects a combination of increased pleural fluid on top of chronic pleural and parenchymal changes However also suspect progressive consolidation/atelectasis/volume loss right lower lung navarro.-suspect additional volume loss and partial collapse RLL yields slight additional shift of heart and mediastinum to the right (more than can merely attribute to slight rotation on this pCXR.). The progressive hazy appearance right midlung and right base also suggesting additional airspace right lung the base as well. . Consider follow-up CT chest further evaluate these progressive features here at right chest, and to further evaluate right bronchus/airway. Dictated by: Luiz Charles MD 02/11/2020 22:38 Luiz Charles MD in [place] 02/11/2020 22:38
[2020-02-11 23:13] LABS: POC Glucose,Bedside 159 (70-110)
--- NOTE | 2020-02-11 23:24 | CT_ITS ---
PROCEDURE: CT HEAD/BRAIN WO CON CLINICAL INDICATION: Stroke Alert COMPARISON: CT CT HEAD/BRAIN WO/W CON from 02/11/2020 TECHNIQUE: Axial images obtained. All CT scans at the facility use one or more dose reduction, viz: automated exposure control, ma/kV adjustment per patient size (including targeted exams where dose is matched to indication, i.e. head), or iterative reconstruction technique. FINDINGS: No midline shift, mass effect, intracranial hemorrhage, hydrocephalus, or extra-axial fluid collection is evident. The patient was unable to lay with her head flat and most of the frontal lobes are cut off from the field of view. A 2nd attempt at scanning with better positioning was obtained and most of the frontal lobes are included which appear normal. The visualized portion of the ventricular system is grossly normal. There is no obvious acute bleed. Mild age-appropriate atrophic changes are seen. There are mild periventricular hypodensities consistent with chronic ischemic white matter changes. The calvarium has an unremarkable appearance. No mastoid effusion. No sinus air-fluid level. IMPRESSION: Somewhat less than satisfactory study due to positioning problems findings of age-appropriate cortical atrophy with no obvious acute intracranial pathology noted Dictated by: Dr. Johnny Burton MD 02/12/2020 08:57 Dr. Johnny Burton MD in [place] 02/12/2020 08:57
--- NOTE | 2020-02-11 23:25 | CT_ITS ---
Procedure: CT ANGIO HEAD CLINICAL HISTORY: Stroke Alert COMPARISON: CT CT HEAD/BRAIN WO CON from 02/11/2020 TECHNIQUE: IV Contrast: 100ml Optiray 350 Axial images obtained with sagittal and coronal reformats. All CT scans at the facility use one or more dose reduction, viz: automated exposure control, ma/kV adjustment per patient size (including targeted exams where dose is matched to indication, i.e. head), or iterative reconstruction technique. FINDINGS: There is excellent vascular opacification. The vertebral arteries and basilar artery appear grossly normal. The [id number] is grossly normal. The right and left middle cerebral artery show normal opacification with no abnormality noted. The anterior cerebral arteries appear normal. There is normal posterior cerebral artery anatomy bilaterally no acute pathology noted. IMPRESSION: There is a normal study with no acute vascular pathology demonstrated Dictated by: Dr. Johnny Burton MD 02/12/2020 09:02 Dr. Johnny Burton MD in [place] 02/12/2020 09:02
--- NOTE | 2020-02-11 23:28 | CT_ITS ---
Procedure: CT ANGIO NECK CLINICAL HISTORY: STROKE ALERT COMPARISON: No exams were available for comparison TECHNIQUE: IV Contrast: 100ml Optiray 350 Axial images obtained with sagittal and coronal reformats. All CT scans at the facility use one or more dose reduction, viz: automated exposure control, ma/kV adjustment per patient size (including targeted exams where dose is matched to indication, i.e. head), or iterative reconstruction technique. FINDINGS: The common carotid arteries are well opacified and appear grossly normal. Both internal carotid arteries are grossly normal as well no significant vascular lesion seen. The vertebral arteries are well opacified and appear normal. Upper portions of the lungs were included on the image showing findings of mild centrilobular emphysema. Portions of the aortic arch are included showing prominent arthrosclerotic calcification. IMPRESSION: Grossly normal study with no significant vascular lesion identified Dictated by: Dr. Johnny Burton MD 02/12/2020 09:11 Dr. Johnny Burton MD in [place] 02/12/2020 09:11
--- NOTE | 2020-02-11 23:53 | PC.NURSE ---
[employer] called at this time for flight check. Declined due to weather. [employer] also called at this time for flight check. [employer] also declined this flight due to weather.
--- NOTE | 2020-02-11 23:54 | PC.NURSE ---
[id number] Report called to [facility] @ [facility] 0000 called sushma to notified of transfer 0034 Hao's left with pt
--- NOTE | 2020-02-11 23:55 | PC.NURSE ---
[place] [employer] [facility] contacted at this time for flight status per [employer].
--- NOTE | 2020-02-11 23:59 | PC.NURSE ---
[facility] has declined at this time for weather
--- NOTE | 2020-02-12 01:38 | PC.NURSE ---
[address] called @2310 ER MD @ bedside 2311 vitals signs obtain 128/56 manual HR 105 93% 2L NC 98.9 oral 26 RR FSBS 159 2318 Pattie on phone with Dr James 2319 Pattie spoke with son [address] accompanied by RN 2326 stroke team notified 2337 Dr Blankenship on phone with Dr Bedoya stroke team
--- NOTE | 2020-02-12 02:34 | HMH.CCN ---
Critical Care Event Note Code activated: No Narrative: This case had a high probability of a clinically significant, sudden, or life threatening deterioration of this patient's condition which required my full and direct attention, intervention and personal management. Rapid response red called on the patient due to deterioration of neurologic status. I had admitted the patient here from the emergency department on the night of 02/09/2020 for expressive aphasia. At that time NIH stroke score was 1. The case had been discussed with [facility] stroke team and they declined transfer at that time but recommended dual antiplatelet therapy and repeat neurological evaluations, control of blood pressure. Apparently the patient had been stable neurologically until about 3 PM today at which time she developed a right hemiparesis. Additionally this evening she lost ability to speak and therefore rapid response was called. Upon my arrival the patient is found to have right hemiparesis. Her gaze is deviated to the left. She follows commands, but is unable to speak. She has no drift of her left upper or lower extremity but cannot resist gravity with her right upper and lower extremity. Unable to test vision, aphasia, dysarthria, ataxia, or sensory. CT scan of the brain and CT angiogram of head and neck were ordered stat. I immediately discussed the case with Dr. Reis [facility] stroke team. She recommends transfer to their emergency department. She is outside of window for thrombolysis. I spoke with the patient's son and he is agreeable with transfer to [facility]. I also discussed the case with Dr. James said he was going to come in to see the patient. CT of head and CT angiogram of head and neck have all returned as negative. Results forwarded to [facility]. Critical care time: 30 - 74 mins [facility] Critical Care Exam Vital signs: Temp Pulse Resp BP Pulse Ox 101.9 F H 118 H 26 H 150/70 H 93 L 02/11/20 20:00 02/11/20 20:00 02/11/20 20:00 02/11/20 19:36 02/11/20 20:00
--- NOTE | 2020-03-01 16:22 | HMH.DCSUM ---
General - General Admission date:: 02/10/20 Discharge date: 03/13/20 HPI HPI: Ms. Gonzalez is a 79-year-old female brought in by EMS last night after being found by her son to developed difficulty with word finding and having elevated blood pressure. Per report from her son, she has had previous episodes (2 per her recollection) they were associated with a UTI and elevated blood pressure. Had previously been on aspirin and Plavix until developing hemoptysis a year ago and is been off antiplatelet/blood thinner therapy since then. On arrival to the ER, she was found to have severe hypertension. Treated initially with labetalol with adequate decrease in blood pressure. Stroke team at was consulted and recommended starting dual antiplatelet therapy and admitting for observation. Medicine consulted for admission and blood pressure management. On assessment this morning, patient answers yes/no questions appropriately but when asked more complex questions, her answers are garbled and make no sense. When asked to place her finger to her nose she consistently put her finger in her mouth. Pleasant on interview. Blood pressure better controlled overnight with systolics 160-180. Son at bedside this morning. Updated on plan. Of note, she has developed fever overnight with T-max 100.8. Hospital Course Hospital Course: Patient initially did well after admission to hospital but her mental status remained somewhat tenuous. Day after admission she developed some right arm weakness. 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 Below is noted from the emergency department physician who responded to this critical care event. Rapid response red called on the patient due to deterioration of neurologic status. I had admitted the patient here from the emergency department on the night of 02/09/2020 for expressive aphasia. At that time NIH stroke score was 1. The case had been discussed with [facility] stroke team and they declined transfer at that time but recommended dual antiplatelet therapy and repeat neurological evaluations, control of blood pressure. Apparently the patient had been stable neurologically until about 3 PM today at which time she developed a right hemiparesis. Additionally this evening she lost ability to speak and therefore rapid response was called. Upon my arrival the patient is found to have right hemiparesis. Her gaze is deviated to the left. She follows commands, but is unable to speak. She has no drift of her left upper or lower extremity but cannot resist gravity with her right upper and lower extremity. Unable to test vision, aphasia, dysarthria, ataxia, or sensory. CT scan of the brain and CT angiogram of head and neck were ordered stat. I immediately discussed the case with Dr. eRis [facility] stroke team. She recommends transfer to their emergency department. She is outside of window for thrombolysis. I spoke with the patient's son and he is agreeable with transfer to [facility]. I also discussed the case with Dr. James said he was going to come in to see the patient. CT of head and CT angiogram of head and neck have all returned as negative. Results forwarded to [facility]. Critical care time: 30 - 74 mins Noted above patient was transferred to [facility] stroke team for further evaluation of progressive stroke. Objective Vital signs: Temp Pulse Resp BP Pulse Ox 101.9 F H 118 H 26 H 150/70 H 93 L 02/11/20 20:00 02/11/20 20:00 02/11/20 20:00 02/11/20 19:36 02/11/20 20:00 Comments: I was not present at the time of transfer so I am unable to comment on physical exam status. DS: Diagnosis - Discharge Diagnosis
[2020-04-19 09:35] LABS: POC Glucose,Bedside 137 (70-110)
== END 2020-02-12 00:34 | disposition short-term general hospital (02) | DRG 65 ==
LOC: ER 02-10 00:10 → 2ND 02-10 10:51
PROVIDERS: Admitting Provider Internal Medicine Adolescent Medicine; Emergency Provider Emergency Medicine; PCP Nurse Practitioner Family; Visit Provider Internal Medicine Adolescent Medicine
DX: I63.89 Other cerebral infarction (principal); G81.91 Hemiplegia, unspecified affecting right dominant side; R47.01 Aphasia; I10 Essential (primary) hypertension; R29.704 NIHSS score 4; E11.9 Type 2 diabetes mellitus without complications; Z79.84 Long term (current) use of oral hypoglycemic drugs; Z79.899 Other long term (current) drug therapy; Z88.0 Allergy status to penicillin; Z88.2 Allergy status to sulfonamides; Z88.5 Allergy status to narcotic agent; R29.724 NIHSS score 24
CPT/HCPCS: 36415; 70450; 70470; 70496; 70498; 71045; 80053; 80305; 81001; 82962; 83735; 84484; 85025; 85610; 86328; 92507; 92610; 93005; 94640; 96374; 96376; 99284; J1956; Q9967

== ENCOUNTER → 2020-03-21 10:39 | Outpatient (CLI) | payer MEDICARE, MEDICAID, SELFPAY ==
[2020-03-21 10:43] LABS: Adenovirus F 40/41, stool Not Detected (NotDetected); Astrovirus Not Detected (NotDetected); Campylobacter Not Detected (NotDetected); Clostridium Difficile A/B, PCR Not Detected (NotDetected); Cryptosporidium Not Detected (NotDetected); Cyclospora Cayetanesis Not Detected (NotDetected); Entamoeba histolytica Not Detected (NotDetected); Enteroaggregative E coli Not Detected (NotDetected); Enteropathogenic E coli Not Detected (NotDetected); Enterotoxigenic E coli Not Detected (NotDetected); Giardia lamblia Not Detected (NotDetected); Norovirus Not Detected (NotDetected); Plesimonas Shigalloides, PCR Not Detected (NotDetected); Rotavirus A Not Detected (NotDetected); Salmonella, PCR Not Detected (NotDetected); Shiga-like toxin E coli Not Detected (NotDetected); Shigella Enterovasive E coli Not Detected (NotDetected); Vibrio Cholerae Not Detected (NotDetected); Vibrio, PCR Not Detected (NotDetected); Yersinia Entercolitica, PCR Not Detected (NotDetected)
[2020-03-25 03:38] LABS: Sapovirus Not Detected (NotDetected)
== END ==
PROVIDERS: Visit Provider Internal Medicine Adolescent Medicine
DX: K52.1 Toxic gastroenteritis and colitis (principal); T36.95XA Adverse effect of unspecified systemic antibiotic, initial encounter; R19.7 Diarrhea, unspecified
CPT/HCPCS: 87506